=== PATIENT | male | born 1985 | race Caucasian/White ===

== ENCOUNTER 2022-10-22 21:56 | Emergency (ER) | payer OTHER ==
[~2022-10-22] VITALS: Ht 170.2 cm; Wt 72.7 kg
[2022-10-22] MEDS ORDERED: ACETAMINOPHEN 500 MG TAB PO ONE (23:30)
[2022-10-22 23:31] VITALS: BP 110/76
[2022-10-23] MEDS ORDERED: KETOROLAC TROMETH 30 MG/ML 1ML VIAL IM ONE (00:30)
== END 2022-10-23 00:33 | disposition home or self-care (01) ==
LOC: ER 21:56
DX: S41.111A Laceration without foreign body of right upper arm, initial encounter (principal); S00.81XA Abrasion of other part of head, initial encounter; S50.811A Abrasion of right forearm, initial encounter; F17.210 Nicotine dependence, cigarettes, uncomplicated; F12.10 Cannabis abuse, uncomplicated; W29.8XXA Contact with other powered hand tools and household machinery, initial encounter; Y93.89 Activity, other specified; Y92.89 Other specified places as the place of occurrence of the external cause; Y99.8 Other external cause status
CPT/HCPCS: 12001; 70450; 73060; 96372; 99285; J1885